=== PATIENT | female | born 1965 | race African-American/Black ===

== ENCOUNTER 2017-01-13 04:11 | Emergency (ER) | payer OTHER ==
[~2017-01-13] VITALS: Ht 162.6 cm; Wt 100.0 kg
[~2017-01-13 04:11] MED LIST: ACET-784 PO; ALBU8HFA4 IH; BECL8.7A6 IH; LISI-661 PO; QUET25TA PO
[2017-01-13] MEDS ORDERED: ALBUTEROL SULFATE 2.5 MG/0.5 ML NEB SOLUTION NEB ONE (04:30)
[2017-01-13] MEDS ORDERED: IPRATROPIUM BROMIDE 0.5 MG/2.5 ML NEB SOLUTION NEB ONE ×2 (04:30→05:45)
[2017-01-13] MEDS ORDERED: PredniSONE 20 MG TABLET PO ONE (05:00)
[2017-01-13] MEDS ORDERED: ALBUTEROL SULFATE 5 MG/ML 20 ML NEB SOLN [BULK] NEB ONE (05:45)
[2017-01-13 06:24] VITALS: BP 138/82
== END 2017-01-13 06:55 | disposition home or self-care (01) ==
LOC: EMS 04:12
DX: J44.9 Chronic obstructive pulmonary disease, unspecified (principal); J45.909 Unspecified asthma, uncomplicated; K21.9 Gastro-esophageal reflux disease without esophagitis; I10 Essential (primary) hypertension; F12.90 Cannabis use, unspecified, uncomplicated; F15.90 Other stimulant use, unspecified, uncomplicated; F17.210 Nicotine dependence, cigarettes, uncomplicated
CPT/HCPCS: 71010; 93005; 94060; 94640; 99285; J7512; J7611; J7613